=== PATIENT | female | born 2000 | race Caucasian/White ===

== ENCOUNTER 2020-06-27 15:43 | Emergency (ER) | payer OTHER, MEDICAID ==
[~2020-06-27] VITALS: Ht 162.6 cm; Wt 90.1 kg
[2020-06-27 16:15] LABS: URINE BILIRUBIN NEGATIVE (Negative); URINE BLOOD NEGATIVE (Negative); URINE CLARITY CLEAR; URINE COLOR YELLOW; URINE GLUCOSE-RANDOM NEGATIVE (Negative); URINE KETONES NEGATIVE (Negative); URINE LEUKOCYTES-REFLEX 1+ (Negative); URINE NITRITE-REFLEX NEGATIVE (Negative); URINE PROTEIN TRACE (Negative); URINE SPECIFIC GRAVITY >= 1.030 (1.005-1.030); URINE UROBILINOGEN 0.2 E.U./dl (0.2-1.0)
[2020-06-27 16:24] LABS: SQUAMOUS >10 Many /LPF (0-3)
[2020-06-27 16:25] LABS: MUCUS 0-3 Light strn/LPF (None Seen)
[2020-06-27 16:26] LABS: BACTERIA-REFLEX 1-9 Few /HPF (None Seen); CASTS None Seen /LPF (None Seen); CRYSTALS None Seen /LPF (None Seen); URINE RBC None Seen /HPF (0-2); URINE WBC-REFLEX 6-15 Few /HPF (0-5)
[2020-06-27 16:51] LABS: ABSOLUTE EOSINOPHILS 0.2 thou/uL (0.0-0.7); ABSOLUTE LYMPHOCYTES 2.1 thou/uL (0.8-5.3); ABSOLUTE MONOCYTES 0.9 thou/uL (0.0-1.2); ABSOLUTE NEUTROPHILS 5.7 thou/uL (1.6-8.1); BASOPHILS 0.5 %; EOSINOPHILS 1.9 %; HEMATOCRIT 39.7 % (37.0-47.0); HEMOGLOBIN 12.6 gm/dL (12.0-15.0); LYMPHOCYTES 23.6 %; MCH 24.1 pg (26.0-34.0); MCHC 31.8 g/dL (28.0-37.0); MCV 75.7 fL (80.0-100.0); MONOCYTES 10.2 %; MPV 7.5 fl. (7.2-11.1); NUCLEATED RBCS 0 /100WBC; PLATELET COUNT* 365 thou/uL (150-400); POLYS 63.8 %; RBC 5.25 mil/uL (4.20-5.00); RDW-CV 17.5 % (10.5-14.5); WBC 8.9 thou/uL (4.0-11.0)
[2020-06-27 17:15] LABS: CREATININE 0.8 mg/dL (0.6-1.3)
[2020-06-27] MEDS ORDERED: ACYCLOVIR 800800 MG PO (17:34)
[2020-06-27] MEDS ORDERED: KEFLEX500 M1 PO (17:34)
[2020-06-27 18:07] VITALS: BP 118/68
[2020-06-27 19:13] LABS: ALBUMIN 3.8 g/dL (3.4-5.0); TOTAL BILIRUBIN 0.7 mg/dL (<0.1-1.0); TOTAL PROTEIN 7.9 g/dL (6.4-8.2)
[2020-07-01 12:07] LABS: HSV 1 DNA Positive (Negative); HSV 2 DNA Negative (Negative)
== END 2020-06-27 18:08 | disposition home or self-care (01) ==
LOC: M.ERS 15:43
PROVIDERS: Nurse Practitioner Family
DX: N39.0 Urinary tract infection, site not specified (principal); N89.8 Other specified noninflammatory disorders of vagina; N76.6 Ulceration of vulva; Z98.890 Other specified postprocedural states